=== PATIENT | male | born 2000 | race Two or more races ===

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

== ENCOUNTER 2024-05-08 09:53 | Outpatient (CLI) | payer OTHER | END 2024-05-08 10:02 | disposition home or self-care (01) | LOC: RAD 09:53 | DX: R05.9 Cough, unspecified (principal) ==